=== PATIENT | male | born 1950 | race Hispanic/Latino ===

== ENCOUNTER 2022-12-03 17:57 | Inpatient (IN) | payer OTHER ==
--- OUTSIDE RECORDS SUMMARY | 2022-12-03 18:02 | XMS REPORT | Continuity of Care Document ---
:1950 Author Organization [facility] t Address [address] [place] [address] [place] [id number] Care Team Providers Name Role Phone NATY JESSICA Mccord Primary Care Physician Unavailable Balbina Woody PA-C Attending Clinician DOROTHY CLINTON Attending Clinician Unavailable Dorothy Clinton DO Attending Clinician Katrina Martinez RN Attending Clinician Unavailable BALBINA WOODY Attending Clinician Unavailable Unknown, Attending Attending Clinician Unavailable Doctor Unassigned, [place] Attending Clinician Unavailable RADIOLOGY Attending Clinician Unavailable Radiology Attending Clinician Unavailable STEPHEN AGUIAR Attending Clinician Unavailable Vaccine, Ang Db Cbc Fam Attending Clinician Unavailable Stephen Aguiar MD Attending Clinician ROMERO ARAUZ Attending Clinician Unavailable Only, Ang Db Test Attending Clinician Unavailable Coco Doll Attending Clinician COCO LUNA Attending Clinician Unavailable ABRAM RICHMOND Attending Clinician Unavailable Nurse, Adc Pob Immunization Attending Clinician Unavailable Abram Richmond DO Attending Clinician Bryan Arriola Attending Clinician BRYAN GIRALDO Attending Clinician Unavailable KAY LIVE Attending Clinician Unavailable SAVANNAH RUFFIN Admitting Clinician Unavailable Payers Payer Name Policy Type Policy Number Effective Date Expiration Date Julian LIGHT [id number] 2017 NORM 00:00:00 [facility] [id number] 2015 00:00:00 Problems Condition Condition Condition Status Onset Resolution Last Treating Co mments Source Name Details Category Date Date Treatment Clinician Date Chest pain Chest pain Disease Active U nivers 3- ity of 00:00: [place] [facility] [place] Allergies, Adverse Reactions, Alerts Allergy Allergy Status Severity Reaction(s) Onset Inactive Treating Comm ents Source Name Type Date Date Clinician PENICILL Drug Active Other-Cmnt Univ ers INS Class 3- ity of 00:00: [place] [facility] ACETAMIN DRUG Active Low Other-Cmnt Univ ers OPHEN INGREDI 3 ity of 00:00: [place] [facility] Penicill Propensi Active Other - See childhoo d Univers ins ty to comments 3 ity of adverse 00:00: [place] reaction 00 Medical s Branch Penicill Propensi Active Other - See childhoo d Univers ins ty to comments 327 ity of adverse 00:00: [place] reaction 00 Medical s Branch Penicill Propensi Active Other - See childhoo d Univers ins ty to comments 3-27 ity of adverse 00:00: [place] reaction 00 Medical s Branch Acetamin Drug Active Other - See GERD Uni vers ophen Intolera comments 3 ity of nce 00:00: [facility] Social History Social Habit Start Date Stop Date Quantity Comments Source History of Current smoker [place] of tobacco use [facility] Exposure to 2022-11-21 2022-12-01 Not sure [facility] SARS-CoV-2 00:00:00 19:23:00 [facility] (event) [place] Tobacco use and 2020-11-27 2020-11-27 Smokeless tobacco Un iversity of exposure 00:00:00 00:00:00 non-user [facility] Sex Ass[birth year] At [birth year] Universit y of 00:00:00 00:00:00 [facility] Smoking Status Start Date Stop Date Source Ex-smoker 2020-11-27 00:00:00 2020-11-27 00:00:00 Universi ty of [facility] Medications Ordered Filled Start Stop Current Ordering Indication Dosage Frequency Signature Comments Components Source Medication Medication Date Date Medication? Clinician (SIG) Name Name ibuprofen 2023-0 2023- No 800mg 800 mg, Uni vers (IBU) 12-02 Oral, ity of tablet 800 04:15: 04:08 ONCE, 1 [place] as mg 00 :00 dose, On [facility] 12/01/22 at 2315, VALENTINO cefTRIAXone 2022- No 1000mg 1,000 mg, Univers (ROCEPHIN) 12-02 IV ity of 1,000 mg in 04:15: 04:38 Piggyback, [place] NaCl 0.9% 00 :00 ONCE, 1 Medical (NS) 100 mL dose, On Bran ch MINI-BAG [facility] 12/01/22 at 2315, Administer over 30 Minutes, 100 mL
Reas on for Anti-Infec tive: Empiric Therapy for Suspected Infection< br>Empiric Therapy Site: Urine
D uration of therapy: 72 hours iopamidol 2022- No [id number] 100mL 100 mL, Univers (ISOVUE 12-02 Intravenou ity o f 370-500 mL) 03:15: 03:15 s, ONCE, 1 [place] injection 00 :00 dose, On Medica l 100 mL [facility] Branch 12/01/22 at 2215, Routine ibuprofen 2022- No 600mg 600 mg, Uni vers (IBU) 12-02 Oral, ity of tablet 600 02:45: 02:58 ONCE, 1 [place] as mg 00 :00 dose, On [facility] 12/01/22 at 2145, VALENTINO maalox:diph No 15mL 15 mL, Uni vers enhydrAMINE 12-02 Oral, ity of :lidocaine 01:30: 01:22 ONCE, 1 [place] as 2 % viscous 00 :00 dose, On Medi alfonso 1:1:1 [facility] (FIRST-MOUT 12/01/[address] [facility]) 2030, oral Routine suspension 15 mL Nitrofurant 2022- Yes [id number] 100mg Take 1 Univers oin&Nit. 12-0206 capsule by ity of Macrocryst 00:00: 04:59 [place] in [place] (MACROBID) 00 :00 the Medical 100 mg morning Branch capsule and 1 capsule in the evening. Do all this for 10 days. tamsulosin 2023-0 Yes [id number] .4mg Take 1 U nivers (FLOMAX) 4-24 capsule by ity o f 0.4 mg 24 00:00: [place] capsule 00 the Medical morning. Branch omeprazole 2022-0 Yes [id number] 40mg Take 1 U nivers 40 mg 4-24 capsule by ity of capsule 00:00: mouth in [place] 00 the Medical morning. Branch tamsulosin 2022-0 Yes [id number] .4mg Take 1 U nivers (FLOMAX) 4-24 capsule by ity o f 0.4 mg 24 00:00: [place] capsule 00 the Medical morning. Branch omeprazole 2022-0 Yes [id number] 40mg Take 1 U nivers 40 mg 4-24 capsule by ity of capsule 00:00: mouth in [place] 00 the Medical morning. Branch cephALEXin 2022-0 2022- Yes [id number] 500mg Take 1 Univers 500 mg 12-01 9100 capsule by ity of capsule 00:00: 04:59 mouth 4 [place] 00 :00 (four) Medical times Branch daily for 7 days. cephALEXin 2022-0 2022- No [id number] 500mg Take 1 Univers 500 mg -12-02 9100 capsule by ity of capsule 00:00: 00:00 mouth 4 [place] 00 :00 (four) Medical times [place] daily for 7 days. ibuprofen 2022-0 2022- No [id number] 400mg U nivers (IBU) 11-29 ity of tablet 400 21:45: 20:58 [place] mg 00 :00 Medical Branch ibuprofen 2022-0 2022- No [id number] 400mg 400 mg, Univers (IBU) 11-29 Oral, ity of tablet 400 21:45: 20:58 ONCE, 1 [place] as mg 00 :00 dose, On Medical Sat Branch 11/29/22 at 1645, Routine sulfamethox 2022-0 Yes [id number] 1{tbl} Take 1 Univers azole-trime -22 tablet by ity of thoprim 00:00: mouth in [place] (BACTRIM 00 the Medical DS) 800-160 morning Branc h mg per and 1 tablet tablet in the evening. tamsulosin 2022-0 Yes [id number] .4mg Take 1 U nivers (FLOMAX) 4-22 capsule by ity o f 0.4 mg 24 00:00: [place] capsule 00 the Medical morning. Branch sulfamethox 2022-0 Yes [id number] 1{tbl} Take 1 Univers azole-trime 4-22 tablet by ity of thoprim 00:00: mouth in [place] (BACTRIM 00 the Medical DS) 800-160 morning Branc h mg per and 1 tablet tablet in the evening. tamsulosin 2022-0 Yes [id number] .4mg Take 1 U nivers (FLOMAX) 4-22 capsule by ity o f 0.4 mg 24 00:00: [place] capsule 00 the Medical morning. Branch sulfamethox 2022-0 Yes [id number] 1{tbl} Take 1 Univers azole-trime 4-22 tablet by ity of thoprim 00:00: mouth in [place] (BACTRIM 00 the Medical DS) 800-160 morning Branc h mg per and 1 tablet tablet in the evening. sulfamethox 2022-0 2023- No [id number] 1{tbl} Take 1 Univers azole-trime 4-22 04-25 tablet by it y of thoprim 00:00: 00:00 mouth in [place] (BACTRIM 00 :00 the Medical DS) 800-160 morning Branc h mg per and 1 tablet tablet in the evening. tamsulosin 2022-0 3- No [id number] .4mg Take 1 Univers (FLOMAX) 4-22 04-24 capsule by ity of 0.4 mg 24 00:00: 00:00 mouth in [place] as hr capsule 00 :00 the Medical morning. Branch omeprazole 2020-0 Yes Univers 40 mg 1-22 ity of capsule 00:00: [place] 00 [facility] Branch omeprazole 2020-0 Yes Univers 40 mg 1-22 ity of capsule 00:00: [place] [facility] omeprazole 2020-0 Yes Univers 40 mg 1-22 ity of capsule 00:00: [place] [facility] omeprazole 2020-0 Yes Univers 40 mg 1-22 ity of capsule 00:00: [place] [facility] omeprazole 2020-0 Yes Univers 40 mg 1-22 ity of capsule 00:00: [place] [facility] omeprazole 2021-0 Yes Univers 40 mg 1-22 ity of capsule 00:00: [place] 00 Medical Branch omeprazole 2020-0 Yes Univers 40 mg 1-22 ity of capsule 00:00: [place] 00 Medical Branch omeprazole 2020-0 2022- No Univer s 40 mg 1-22 04-24 ity of capsule 00:00: 00:00 [place] 00 :00 Medical Branch Immunizations Ordered Filled Immunization Date Status Comments [facility] e Immunization Name Name SARS-COV-2 COVID-19 2022-05-19 Completed Unive rsity of VACCINE 18 YRS+, 00:00:00 [place] [facility]ical BIVALENT 0.5ML, IM, Branc h (MODERNA BOOSTER) SARS-COV-2 COVID-19 2022-05-19 Completed Unive rsity of VACCINE 12 YRS+, 00:00:00 [place] [facility] BIVALENT 0.5ML, IM, Branc h (MODERNA BOOSTER) SARS-COV-2 COVID-19 2022-05-19 Completed Unive rsity of VACCINE 12 YRS+, 00:00:00 [place] [facility] BIVALENT 0.5ML, IM, Branc h (MODERNA BOOSTER) SARS-COV-2 COVID-19 2022-05-19 Completed Unive rsity of VACCINE 12 YRS+, 00:00:00 [place] [facility] BIVALENT 0.5ML, IM, Branc h (MODERNA BOOSTER) SARS-COV-2 COVID-19 2022-05-19 Completed Unive rsity of VACCINE 12 YRS+, 00:00:00 [place] [facility] BIVALENT 0.5ML, IM, Branc h (MODERNA) SARS-COV-2 COVID-19 2022-05-19 Completed Unive rsity of VACCINE 12 YRS+, 00:00:00 [place] [facility]ical BIVALENT 0.5ML, IM, Branc h (MODERNA) SARS-COV-2 COVID-19 2022-05-19 Completed Unive rsity of VACCINE 12 YRS+, 00:00:00 [place] [facility]ical BIVALENT 0.5ML, IM, Branc h (MODERNA) SARS-COV-2 COVID-19 2021-07-11 Completed Unive rsity of MODERNA BOOSTER 00:00:00 [facility] VACCINE Branch SARS-COV-2 COVID-19 2021-07-11 Completed Unive rsity of MODERNA BOOSTER 00:00:00 [place] [facility] ical VACCINE Branch SARS-COV-2 COVID-19 2021-07-11 Completed Unive rsity of MODERNA 0.25ML 00:00:00 [place] Medi alfonso BOOSTER VACCINE Branch SARS-COV-2 COVID-19 2021-07-11 Completed Unive rsity of MODERNA 0.25ML 00:00:00 [place] Medi alfonso BOOSTER VACCINE Branch SARS-COV-2 COVID-19 2021-07-11 Completed Unive rsity of MODERNA 0.25ML 00:00:00 [place] Medi alfonso BOOSTER VACCINE Branch SARS-COV-2 COVID-19 2021-07-11 Completed Unive rsity of MODERNA 0.25ML 00:00:00 [place] Medi alfonso BOOSTER VACCINE Branch SARS-COV-2 COVID-19 2021-07-11 Completed Unive rsity of MODERNA 0.25ML 00:00:00 [place] Medi alfonso BOOSTER VACCINE Branch SARS-COV-2 COVID-19 2021-07-11 Completed Unive rsity of MODERNA 0.25ML 00:00:00 [place] Medi alfonso BOOSTER VACCINE Branch SARS-COV-2 COVID-19 2021-07-11 Completed Unive rsity of MODERNA 0.25ML 00:00:00 [place] Medi alfonso BOOSTER VACCINE Branch SARS-COV-2 COVID-19 2020-09-10 Completed Unive rsity of MODERNA VACCINE 00:00:00 [place] [facility] ical Branch SARS-COV-2 COVID-19 2020-09-10 Completed Unive rsity of MODERNA VACCINE 00:00:00 [place] [facility] ical Branch SARS-COV-2 COVID-19 2020-09-10 Completed Unive rsity of MODERNA 12+ YRS 00:00:00 [place] [facility] ical VACCINE Branch SARS-COV-2 COVID-19 2020-09-10 Completed Unive rsity of MODERNA 12+ YRS 00:00:00 [place] [facility] ical VACCINE Branch SARS-COV-2 COVID-19 2020-09-10 Completed Unive rsity of MODERNA 12+ YRS 00:00:00 [place] [facility] ical VACCINE Branch SARS-COV-2 COVID-19 2020-09-10 Completed Unive rsity of MODERNA 12+ YRS 00:00:00 [place] [facility] ical VACCINE Branch SARS-COV-2 COVID-19 2020-09-10 Completed Unive rsity of MODERNA 12+ YRS 00:00:00 [place] [facility] ical VACCINE Branch SARS-COV-2 COVID-19 2020-09-10 Completed Unive rsity of MODERNA 12+ YRS 00:00:00 [place] [facility] ical VACCINE Branch SARS-COV-2 COVID-19 2020-09-10 Completed Unive rsity of MODERNA 12+ YRS 00:00:00 [place] [facility] ical VACCINE Branch SARS-COV-2 COVID-19 2020-08-13 Completed Unive rsity of MODERNA VACCINE 00:00:00 [place] [facility] ical Branch SARS-COV-2 COVID-19 2020-08-13 Completed Unive rsity of MODERNA VACCINE 00:00:00 [place] [facility] ical Branch SARS-COV-2 COVID-19 2020-08-13 Completed Unive rsity of MODERNA 12+ YRS 00:00:00 [place] [facility] ical VACCINE Branch SARS-COV-2 COVID-19 2020-08-13 Completed Unive rsity of MODERNA 12+ YRS 00:00:00 [place] [facility] ical VACCINE Branch SARS-COV-2 COVID-19 2020-08-13 Completed Unive rsity of MODERNA 12+ YRS 00:00:00 [place] [facility] ical VACCINE Branch SARS-COV-2 COVID-19 2020-08-13 Completed Unive rsity of MODERNA 12+ YRS 00:00:00 [place] [facility] ical VACCINE Branch SARS-COV-2 COVID-19 2020-08-13 Completed Unive rsity of MODERNA 12+ YRS 00:00:00 [place] [facility] ical VACCINE Branch SARS-COV-2 COVID-19 2020-08-13 Completed Unive rsity of MODERNA 12+ YRS 00:00:00 [place] [facility] ical VACCINE Branch SARS-COV-2 COVID-19 2020-08-13 Completed Unive rsity of MODERNA 12+ YRS 00:00:00 [place] [facility] VACCINE Branch Vital Signs Vital Name Observation Time Observation Value Comments Source Heart rate 2022-12-02 04:42:00 74 /min [facility] Body temperature 2022-12-02 04:42:00 37.94 [facility] in 2022-12-02 04:42:00 95 /min University of Arterial blood by [facility] Pulse oximetry Branch Systolic blood 2022-12-02 03:00:00 142 mm[Hg] Univer sity of pressure [facility] Diastolic blood 2022-12-02 03:00:00 79 mm[Hg] Unive rsity of pressure [facility] Respiratory rate 2022-12-02 03:00:00 20 /min Univ ersity of [facility] Body height 2022-12-02 00:29:00 170.2 cm Universi ty of [facility] Body weight 2022-12-02 00:29:00 88.451 kg Universi ty of [facility] BMI 2022-12-02 00:29:00 30.54 kg/m2 Universi ty of [facility] Systolic blood 2022-11-29 20:41:00 136 mm[Hg] Univer sity of pressure [facility] Diastolic blood 2022-11-29 20:41:00 77 mm[Hg] Unive rsity of pressure [facility] Heart rate 2022-11-29 20:41:00 102 /min Universi ty of [facility] Body temperature 2022-11-29 20:41:00 37.67 Hellen Univ ersity of [facility] Respiratory rate 2022-11-29 20:41:00 19 /min Univ ersity of [facility] Body height 2022-11-29 20:41:00 170.2 cm Universi ty of [place] [facility] [place] Body weight 2022-11-29 20:41:00 90.583 kg Universi ty of [place] [facility] [place] BMI 2022-11-29 20:41:00 31.28 kg/m2 Universi ty of [facility] Oxygen saturation in 2022-11-29 20:41:00 96 /min [facility] Arterial blood by [facility] Pulse oximetry Branch Procedures Procedure Date / Time Performed Performing Clinician Sour e URINALYSIS 2022-12-02 02:21:00 Dorothy Clinton [facility] LIPASE 2022-12-02 00:50:00 Dorothy Clinton [facility] TROPONIN I 2022-12-02 00:50:00 Dorothy Clinton [facility] COMP. METABOLIC PANEL 2022-12-02 00:50:00 Dorothy Clinton [facility] ([id number]) Medical Branch CBC WITH DIFF 2022-12-02 00:50:00 Dorothy Clinton [facility] NOTICE OF PRIVACY 2022-12-02 00:11:00 Doctor Unassigned, No [facility] CONSENT/REFUSAL FOR 2022-12-02 00:10:37 Doctor Unassigned, No Un iversity of [place] DIAGNOSIS AND [facility] TREATMENT POCT URINALYSIS 2022-11-29 20:39:00 Bong [facility] o claudio [facility] ASSIGNMENT OF BENEFITS 2022-11-29 20:31:39 Doctor Unassigned, No [facility] CT SINUS WO CONTRAST 2022-11-05 13:30:13 Requisition, Paper [facility] CONSENT/REFUSAL FOR 2022-11-05 13:11:40 Doctor Unassigned, No Un iversity of [place] DIAGNOSIS AND [facility] TREATMENT ASSIGNMENT OF BENEFITS 2022-11-05 13:11:17 Doctor Unassigned, No [facility] SARS-COV-2 COVID-19 2022-05-19 18:08:36 [facility] Un[facility]igned, [facility] 18 Y[facility]+, [facility] BIVALENT 0.5ML, IM (MODERNA BOOSTER) CT SINUS WO CONTRAST 2021-11-26 14:57:46 Requisition, Paper [facility] NOTICE OF PRIVACY 2021-11-26 14:33:09 Doctor Unassigned, No [facility] CONSENT/REFUSAL FOR 2021-11-26 14:32:56 Doctor Unassigned, No Un iversity of [place] DIAGNOSIS AND [facility] TREATMENT ASSIGNMENT OF BENEFITS 2021-11-26 14:32:41 Doctor Unassigned, No [facility] Encounters Start End Encounter Admission Attending Care Care Encounter Source Date/Time Date/Time Type Type Clinicians Facility Department ID 2022-12-02 2022-12-02 Case Bong [facility] [id number] Univers 00:00:00 00:00:00 Management [facility] [id number] ity of [place] [id number] Aryan as ABISAI?BLEA [id number] [address] MEDICAL OFFICE [facility] 2022-12-01 2022-12-01 [facility] [id number] Univers 19:39:00 23:42:00 DOROTHY ity [facility] 2022-12-01 2022-12-01 Emergency [facility] [id number] Univers 19:39:00 23:42:00 Dorothy [place] [id number] i ty [id number] [place] [id number] [facility] 084 [place] 2022-12-01 2022-12-01 Nurse Katrina Martinez [id number] Univers 00:00:00 00:00:00 Triage ANOOP [id number] it y of HOSPITAL [id number] Aryan as [id number] [facility] 019 [place] 2022-11-29 2022-11-29 [facility] [id number] Univers 15:40:00 16:15:33 BALBINA [facility] 2022-11-29 2022-11-29 Urgent Bong [facility] [id number] Univers 15:40:00 16:00:00 Care Unknown, Attending HEALTH [id number] ity of [place] 4.2.7.2.686 [place] as ABISAI?BLEA [id number] [address] MEDICAL OFFICE [facility] 2022-11-29 2022-11-29 Orders Doctor GIL [id number] Univers 00:00:00 00:00:00 Only Unassigned, ANOOP [id number] ity of [place] [facility] [id number] Aryan as [id number] [facility] 009 [place] 2022-11-05 2022-11-05 Outpatient R RADIOLOGY [facility] [id number] Univers 08:11:08 23:59:00 ity of [facility] 2022-11-05 2022-11-05 Hospital Radiology [facility] 1.2.840.114 [id number] Univers 08:11:08 23:59:00 [facility] [id number] ity [facility] 4.2.7.2.686 [facility] [id number] [address] 2022-05-19 2022-05-19 Outpatient R STEFANIA [facility] [id number] Univers 13:00:00 13:40:03 STEPHEN [facility] 2022-05-19 2022-05-19 Imm/Inj Vaccine, Ang Db Cbc Fam [facility] 1. 2.840.114 [id number] Univers 13:00:00 13:10:00 Visit Stephen Aguiar [facility] [id number] ity [facility] 4.2.7.2.686 Aryan as ABISAI?BLEA [id number] Ga dical [facility] 044 [place] MEDICAL OFFICE [facility] 2021-11-26 2021-11-26 Outpatient R RADIOLOGY [facility] [id number] Univers 09:36:12 23:59:00 [facility] 2021-11-26 2021-11-26 Hospital Radiology [facility] 1.2.840.114 [id number] Univers 09:36:12 23:59:00 [facility] [id number] ity [facility] 4.2.7.2.686 [facility] [id number] [address] 2021-09-30 2021-09-30 Outpatient R REGLA [facility] [id number] Univers 18:00:00 18:00:00 ROMERO ittaz [facility] 2021-08-10 2021-08-10 Laboratory Only, Ang Db Test [facility] 1.2.8 40.114 [id number] Univers 12:00:00 12:15:00 Only Coco Luna [employer] 350.1.13.10 ity of [place] 4.2.7.2.686 Aryan as ABISAI?BLEA [id number] Ga dical K[place] 370 [place] MEDICAL OFFICE BUILDING 2021-08-10 2021-08-10 Outpatient R CHERYL [facility] [id number] Univers 12:00:00 12:00:00 COCO ity [facility] 2021-08-10 2021-08-10 Outpatient R CHERYL [facility] [id number] Univers 12:00:00 12:00:00 COCO matt [facility] 2021-08-10 2021-08-10 Letter Doctor GIL 1.2.840.114 [id number] Univers 00:00:00 00:00:00 (Out) Unassigned, ANOOP 350.1.13.10 ity of [place] [facility] 4.2.7.2.686 Aryan as [id number] [address] 2021-08-10 2021-08-10 Letter Doctor LOUISE 1.2.840.114 [id number] Univers 00:00:00 00:00:00 (Out) Unassigned, ANOOP [id number] ity of [place] [facility]OS[facility] 4.2.7.2.686 Aryan as [id number] [address] 2021-08-10 2021-08-10 Letter Doctor GIL 1.2.840.114 [id number] Univers 00:00:00 00:00:00 (Out) Unassigned, ANOOP [id number] ity of [place] [facility] 4.2.7.2.686 Aryan as [id number] [address] 2021-07-11 2021-07-11 Outpatient R YI [facility] [id number] Univers 09:50:00 09:50:00 ABRAM matt [facility] 2021-07-11 2021-07-11 Imm/Inj Nurse, Adc Pob Immunization [facility] 1.2.840.114 [id number] Univers 09:16:21 09:46:26 Visit Abram [place] 350.1.13 .10 [place]y [place]2.[place] [id number] Ga dic[address] 2021-01-11 2021-01-11 Orders Doctor GIL 1.2.840.114 [id number] Univers 00:00:00 00:00:00 Only Unassigned, ANOOP 350.1.13.10 ity of [place] [facility] 4.2.7.2.686 Aryan as [id number] [address] 2020-12-10 2020-12-10 Orders Doctor LOUISE 1.2.840.114 [id number] Univers 00:00:00 00:00:00 Only Unassigned, ANOOP 350.1.13.10 ity of [place] [facility] 4.2.7.2.686 Aryan as [id number] [address] 2020-11-27 2020-11-27 Hospital [facility] 1.2.840.114 [id number] Univers 09:12:27 23:59:00 Encounter [facility] [id number] ity of Surgical 4.2.7.2.686 Aryan as Specialti [id number] Ga dical es 809 [facility] 2020-11-27 2020-11-27 Outpatient R [facility] [id number] Univers 09:12:27 23:59:00 [facility] 2020-11-27 2020-11-27 Office [facility] 1.2.840.114 [id number] Univers 09:02:28 09:17:28 Visit [facility] [id number] it y of Surgical 4.2.7.2.686 Aryan as Specialti [id number] Ga dical es 198 [facility] 2020-09-10 2020-09-10 [facility]patient [facility] [id number] Univers 13:00:00 13:00:00 [facility] [place] [facility] 2020-08-13 2020-08-13 [facility]patient [facility] [id number] Univers 15:20:00 15:20:00 [facility] Results Test Description Test Time Test Comments Results Result Comments Source TROPONIN I 2022-12-02 01:44:20 Test Item Value Reference Range Interpretation Comme nts TROPONIN I (test code = 2706035815) 0.005 ng/mL <=0.034 BLAIR (test code = BLAIR) Reference (Normal) Range (defined by the 99th percentile reference limit): <= 0.034 ng/mL Note: Cardiac troponin begins to rise 3-4 hours after the onset of ischemia. Repeat in 4-6 hours if the sample was drawn within 3-4 hours of the onset of the symptom and found normal. Diagnosis of myocardial injury is made with acute changes in cTn concentrations with at least one serial sample above the 99th percentile upper reference limit (URL), taken together with the patient's clinical presentation. Biotin has been reported to cause a negative bias, interpret results relative to patient's use of biotin. Lab Interpretation (test code = Normal 67729-7) [facility] WITH [id number] 01:34:13 Test Item Value Reference Range Interpretation Comments WBC (test code = 8.11 See_Comment [Automated 1629-2) message] The sy stem which generated this result transmitted reference range : 4.20 - 10.70 10*3/?L. The reference range was not used to interpret this result as normal/abnormal . RBC (test code = 4.87 See_Comment [Automated 129-8) message] The sy stem which generated this result transmitted reference range : 4.26 - 5.52 10*6/?L. The reference range was not used to interpret this result as normal/abnormal . HGB (test code = 15.3 g/dL 12.2-16.4 718-7) HCT (test code = 45.0 % 38.4-49.3 4544-3) MCV (test code = 92.4 fL 81.7-95.6 787-2) MCH (test code = 31.4 pg 26.1-32.7 785-6) MCHC (test code = 34.0 g/dL 31.2-35.0 786-4) RDW-SD (test code = 41.2 fL 38.5-51.6 12005-0) RDW-CV (test code = 12.2 % 12.1-15.4 788-0) PLT (test code = 205 See_Comment [Automated 357-3) message] The sy stem which generated this result transmitted reference range : 150 - 328 10*3/ ?L. The reference r reji was not used to interpret this result as normal/abnormal . MPV (test code = 10.5 fL 9.8-13.0 76285-2) NRBC/100 WBC (test 0.0 See_Comment [Automat ed code = 7048164913) message] The system which generated this result transmitted reference range : 0.0 - 10.0 /100 WBCs. The refer ence range was not u sed to interpret th is result as normal/abnormal . NRBC x10^3 (test code See_Comment [Auto mated = 4386238841) message] The s ystem which generated this result transmitted reference range : 10*3/?L. The reference range was not used to interpret this result as normal/abnormal . GRAN MAT (NEUT) % 82.4 % (test code = 770-8) IMM GRAN % (test code 0.90 % = 0006469782) LYMPH % (test code = 6.2 % 736-9) MONO % (test code = 10.2 % 5905-5) EOS % (test code = 0.1 % 713-8) BASO % (test code = 0.2 % 706-2) GRAN MAT x10^3(ANC) 6.68 10*3/uL 1.99-6.95 (test code = 7703477413) IMM GRAN x10^3 (test 0.07 10*3/uL 0.00-0.06 H code = 9978582203) LYMPH x10^3 (test code 0.50 10*3/uL 1.09-3.23 L = 731-0) MONO x10^3 (test code 0.83 10*3/uL 0.36-1.02 = 742-7) EOS x10^3 (test code = 0.06-0.53 L 711-2) BASO x10^3 (test code 0.01-0.09 = 704-7) Lab Interpretation Abnormal (test code = 19854-9) [facility] ([id number])2022-12-02 01:21:35 Test Item Value Reference Range Interpretation Comments NA (test code = 132 mmol/L 135-145 L 1931193844) K (test code = 4.0 mmol/L 3.5-5.0 2840868950) CL (test code = 99 mmol/L 98-108 9527893249) CO2 TOTAL (test code = 25 mmol/L 23-31 3316251499) AGAP (test code = 8 2-16 5540566432) BUN (test code = 16 mg/dL 7-23 8417504765) GLUCOSE (test code = 136 mg/dL 70-110 H 9906421947) CREATININE (test code = 0.81 mg/dL 0.60-1.25 8545899907) TOTAL BILI (test code = 1.0 mg/dL 0.1-1.2 2115437072) CALCIUM (test code = 8.4 mg/dL 8.6-10.6 L 2078714461) T PROTEIN (test code = 6.9 g/dL 6.3-8.2 5709938565) ALBUMIN (test code = 3.9 g/dL 3.5-5.0 0041025808) ALK PHOS (test code = 112 U/L 34-122 8983176025) ALTv (test code = 32 U/L 5-50 2-6) AST(SGOT) (test code = 39 U/L 13-40 4077771264) eGFR (test code = 93.9 mL/min/1.73m2 3139088614) BLAIR (test code = LBAIR) Association of Glomerular Filtration Rate (GFR) and Staging of Kidney Disease* + --+ --+ ------+| GFR (mL/min/1.73 m2) ?| With Kidney Damage ?| ?Without Kidney Damage+ --------+ --------+ +| ?>90 ?| ?Stage one ?| ? Normal ?+ ---+ ---+ -------+| ?60-89 ?| ?Stage two ?| ? Decreased GFR ? + --+ --+ ------+| ?30-59 ?| ?Stage three ?| ? Stage three ? + --+ --+ ------+| ?15-29 ?| ?Stage four ? | ? Stage four ?+ ---+ ---+ -------+| ?<15 (or dialysis) ? ?| ?Stage five ? | ? Stage five ?+ ---+ ---+ -------+ *Each stage assumes the associated GFR level has been in effect for at least three months. ?Stages 1 to 5, with or without kidney disease, indicate chronic kidney disease. Notes: Determination of stages one and two (with eGFR >59mL/min/1.73 m2) requires estimation of kidney damage for at least three months as defined by structural or functional abnormalities of the kidney, manifested by either:Pathological abnormalities or Markers of kidney damage (including abnormalities in the composition of the blood or urine or abnormalities in imaging tests). Lab Interpretation Abnormal (test code = 80470-9) [facility]15 Test Item Value Reference Range Interpretation Comments LIPASE (test code = 6304657424) 52 U/L 0-220 Lab Interpretation (test code = Normal 80621-7) [facility] SPECIFIC [id number] 20:40:00 Test Item Value Reference Range Interpretation Comments POCT U SP GRAV (test 1.020 mg/dl 1.005-1.025 code = 3255) POCT PH U (test code = 5 mg/dl 5-8 3254) POCT U LEUK EST (test ++ Negative - code = 3263) Negative POCT U NIT (test code positive Negative - = 3262) Negative POCT U PROT (test code ++100 Negative - = 3259) Negative POCT U GLU (test code normal Negative - = 3256) Negative POCT U KETONE (test +++large Negative - code = 3258) Negative POCT U UROBILI (test 12mg/dl 0.2-1 code = 3260) POCT U BILI (test code negative Negative - = 3261) Negative POCT U BLD (test code about 250 Negative - = 3257) Negative POCT U COLOR (test elsy code = 3266) POCT U APPEAR (test cloudy code = 3267) BLAIR (test code = BLAIR) accurate development and interpretation of all internal controls Lab Interpretation Abnormal (test code = 90669-6) [facility]"
[2022-12-03 19:52] VITALS: BMI 30.7
[2022-12-03 20:15] VITALS: O2SAT 97
[2022-12-03 20:47] LABS: Absolute Lymphocytes (CBC) 1.3 K/uL (0.7-4.9); Hematocrit 42.4 % (39.6-49.0); MPV 8.5 fL (7.6-11.3); RBC Red Blood Cell Count 4.61 M/uL (4.33-5.43)
[2022-12-03 21:13] LABS: Urine Bilirubin NEGATIVE (Negative); Urine Blood Negative (Negative); Urine Clarity Clear (Clear); Urine Color Light-Yellow (Yellow); Urine Glucose NEGATIVE (Negative); Urine Protein NEGATIVE (Negative); Urine Urobilinogen Normal (Normal); Urine pH 6.5 (5.0-7.0)
[2022-12-03 21:28] LABS: Albumin 3.1 g/dL (3.4-5.0); Bilirubin Total 0.3 mg/dL (0.2-1.0); Potassium 3.3 mEq/L (3.5-5.1); Protein, Total 7.1 g/dL (6.4-8.2)
[2022-12-03] MEDS: Meropenem 1,000 MG in NA CHLORIDE 0.9% 100 ML IV SCH (22:18)
[2022-12-03] MEDS ORDERED: NA CHLORIDE 0.9% 100 ML ONE (22:19)
[2022-12-03] MEDS ORDERED: Meropenem 1000 MG/VIAL IV ONE (22:21)
[2022-12-04] MEDS ORDERED: PNEUMOCOCCAL VACCINE 0.5 ML IMVAC ONE (08:00)
[2022-12-04] MEDS: Meropenem 1,000 MG in NA CHLORIDE 0.9% 100 ML IV SCH ×2 (08:21→20:04)
[2022-12-04] MEDS: TAMSULOSIN 0.4 MG SR CAP PO SCH (08:21)
--- NOTE | 2022-12-04 08:57 | RAD REPORT ---
EXAM DESCRIPTION: CTAbdomen Pelvis W Contrast - 12/04/2022 7:39 am CLINICAL HISTORY: Abdominal pain. UTI COMPARISON: Abdomen Pelvis Wo Contrast dated 09/10/2022 TECHNIQUE: Biphasic CT imaging of the abdomen and pelvis was performed with 100 ml non-ionic IV cont rast. All CT scans are performed using dose optimization technique as appropriate and may include automated exposure control or mA/KV adjustment according to patient size. FINDINGS: The lung bases are clear. The liver, spleen, pancreas, adrenal glands and kidneys are within normal limits. No bowel obstruction, free air, free fluid or abscess. Significant fecal retention throughout the col on. The appendix is normal. No evidence of significant lymphadenopathy. No suspicious bony findings. IMPRESSION: No acute intra-abdominal or pelvic finding.
--- NOTE | 2022-12-04 09:05 | RAD REPORT ---
EXAM DESCRIPTION: RAD - Chest Pa And Lat (2 Views) - 12/04/2022 8:59 am CLINICAL HISTORY: UTI Chest pain. COMPARISON: Chest Pa And Lat (2 Views) dated 09/10/2016 FINDINGS: The lungs are clear. The heart is normal in size. No displaced fractures. IMPRESSION: No acute or concerning finding suspected.
--- NOTE | 2022-12-04 23:49 | PN ---
Date of Progress Note: 12/04/2022 Subjective: The patient was seen this morning for followup. No new complaints or problems reported by the patient. Lying in bed, not in any distress. Objective: Vital Signs: Reviewed. HEENT: Unremarkable. Lungs: Clear to auscultation. Heart: Sounds normal. Abdomen: Soft. Bowel sounds normal. No guarding, rigidity, or distention. Presence of tenderness in suprapubic region, unchanged from yesterday. No rebound tenderness. Extremities: No leg edema. Laboratory Data: Yesterday's CBC and chemistry results reviewed. Today CT scan of the abdomen and p antonio was ordered with contrast and it came back unremarkable. Impression: 1.Urinary tract infection. 2.Gastroesophageal reflux disease. Plan: We will go ahead and continue current antibiotic, which is meropenem. Urinalysis was normal, which was done upon admission and urine culture result is pending. We will follow up on urine cultur e result and once that is available then we will plan for discharge. Meanwhile continue current eleazar penem. KAREN/MODL Voice ID: [id number] Report ID: [id number]
[2022-12-05] MEDS: PANTOPRAZOLE 40MG TABLET PO SCH (05:50)
[2022-12-05] MEDS: Mupirocin NASAL 2 APPL/1 GM TUBE NAS SCH ×2 (09:26→20:01)
[2022-12-05] MEDS: Meropenem 1,000 MG in NA CHLORIDE 0.9% 100 ML IV SCH ×2 (09:26→20:01)
[2022-12-05] MEDS: TAMSULOSIN 0.4 MG SR CAP PO SCH (09:26)
--- NOTE | 2022-12-05 13:30 | RAD REPORT ---
EXAM DESCRIPTION: RAD - Chest Single View - 12/05/2022 12:38 pm CLINICAL HISTORY: Device placement PICC line placement . IMPRESSION: PICC line with its tip in the proximal superior vena cava
--- NOTE | 2022-12-05 16:07 | HP ---
Date of Admission: 12/03/2022 Chief Complaint: Urinary tract infection. History Of Present Illness: This is a 72-year-old very pleasant male patient who came into office wi th symptoms of urinary tract infection about 2 weeks ago. At that time, urinalysis was done at [facility], which was indicating presence of urinary tract infection and patient was started on Cipro and urin e culture was sent. Urine culture did not grow any particular bacteria, but the patient's symptoms i mproved after taking 1 week of Cipro. Few days after he finished taking Cipro, he started to have pr oblem with burning sensation on urination, frequency, and fever and at that time, he decided to go to [facility] emergency room, which was on 12/01/2022. Patient had blood test, urinalysis, and urine culture done. Initially, he was prescribed Bactrim from the emergency room. After taking 1 dose of Bactrim , he started to have nausea, vomiting, so he was prescribed cephalexin by emergency room and patient reports that [facility] contacted him to stop cephalexin and to start nitrofurantoin and he did not know wh y and that is the time he came to see me at office. Patient brought copy of his CBC, chemistry panel , urinalysis, and all those results reviewed and it was unremarkable except his urinalysis was abnorm al consistent with urinary tract infection and urine culture result, he did not bring it and he was a sked to bring it as he reported that he had it at home and patient did not bring that urine culture r esults until today on 12/03/2022 and then just showed E coli, but no sensitivity result. So, we karissa hartmany got this copy of the results from [facility] and this appears to be resistant E coli, sensitiv e to meropenem, ertapenem, and only oral antibiotic it is sensitive to is nitrofurantoin. On the cul ture report, it does not state that this is ESBL, but that is what I am concerned about on basis of t his result, which is resistant E coli. The patient also had a CAT scan of abdomen and pelvis done in the emergency room, which did not show any evidence of kidney stone, but it did show significant ab dder wall thickening with stranding of the fat around the bladder and enlarged prostate. After revie wing all this information, it was recommended for patient to get admitted to the hospital with IV ant ibiotics, meropenem. It is important to note that the patient has been taking nitrofurantoin for las t 1-2 days. He did have low-grade fever yesterday. Allergies: PENICILLIN. Medications: Omeprazole 40 mg daily and nitrofurantoin 100 mg 2 times a day. Review of Systems: Constitutional: As mentioned above. Genitourinary: As mentioned above. All other systems reviewed and negative. Past Medical History: Significant for allergic rhinitis, impaired fasting glucose, hyperlipidemia, g astroesophageal reflux disease, cervical spondylosis, and lumbar spondylosis. Past Surgical History: Left shoulder surgery. Family History: Father in motor vehicular accident. Mother, brother, and sister have diabetes. Social History: Negative for smoking. Use of alcohol weekly. Physical Examination: Vital Signs: When he was admitted, temperature 97.2, pulse 71, respiratory rate 18, blood pressure 1 68/79, oxygen saturation 95%. Height 5 feet 7 inches, weight 196 pounds. General: Awake, alert, oriented, not in distress. HEENT: Head atraumatic, normocephalic. Conjunctivae nonerythematous. Sclerae white. Mouth, no thr ush or edema noted. Ears/Nose, no mass, lesion, discharge noted. Neck: Supple. No JVD, lymph nodes, bruit, thyromegaly noted. Lungs: Bilateral good equal air entry. Clear to auscultation. No rhonchi. No rales. Heart: Normal heart sounds, no murmur or gallop. Abdomen: Soft. Bowel sounds normal. No guarding, rigidity, distention. No hepatosplenomegaly. No bruit and patient does have suprapubic tenderness. Extremities: No leg edema. No calf tenderness. Skin: No rash, ulcer, cellulitis. Lymphatics: No lymph node enlargement in neck, supraclavicular, infraclavicular region. Neuro: No focal neurological deficit. Chest: Unremarkable. External Genitalia: Deferred. Rectal: Deferred. Laboratory Data: White count 5.7, hemoglobin 14.8, platelets 203. Sodium 131, potassium 3.3, chlori de 100, bicarb 28, BUN 15, creatinine 0.77, glucose 135. AST 41. Otherwise rest of the liver funct ion tests normal. Procalcitonin 0.11, which is slightly high. Lactic acid normal at 1.1. Urinalysi s done at our hospital upon admission is normal. Impression: 1.Urinary tract infection, organism Escherichia coli. 2.Benign prostatic hypertrophy. 3.Hypokalemia. 4.Hyponatremia. 5.Gastroesophageal reflux disease. 6.Allergic rhinitis. 7.Impaired fasting glucose. 8.Hyperlipidemia. 9.Cervical spondylosis. 10.Lumbar spondylosis. Plan: We will admit the patient to hospital for further evaluation and management of this problem. Patient is appropriate for inpatient and is expected to spend 2 midnights in hospital. It appears th at the patient has a urinary tract infection with resistant E coli on basis of urine culture results, his symptoms, physical findings, and CAT scan results. He has taken nitrofurantoin for 1-2 days marcella t is resulting in normal urinalysis findings that we see upon admission. We will wait for our urine culture and blood culture results. Start the patient on IV meropenem 1000 mg every 12 hours. For hy pokalemia, give potassium replacement per order. We will continue his proton pump inhibitor therapy for gastroesophageal reflux disease. DVT prophylaxis will be given per order. Details and plan of t reatment discussed with the patient. KAREN/MODL Voice ID: [id number]
--- NOTE | 2022-12-05 20:22 | PN ---
Date of Progress Note: 12/05/2022 Subjective: Patient was seen this morning for followup. He was lying in bed, not in any distress. Overall, he feels a lot better. His suprapubic pain has significantly improved. His urinary frequen cy problem with this infection has improved. It is not back to normal, but it is better than before. The burning on urination also has improved. Objective: Vital Signs: Reviewed. HEENT: Unremarkable. Lungs: Clear to auscultation. Heart: Sounds normal. Abdomen: Soft. Bowel sounds normal. No guarding, rigidity, or distention. No rebound tenderness. The patient has very minimal tenderness in the suprapubic region, which is much better today than ye sterday. Extremities: No leg edema. Laboratory Data: PSA yesterday was 19.3. Impression: 1.Prostatitis. 2.Acute cystitis. 3.Gastroesophageal reflux disease. 4.Hypokalemia. Plan: We will go ahead and continue current medication, which is meropenem and we will order PICC li ne for him. The patient had a normal PSA before and there is acute increase in PSA and this is consi stent with his acute prostatitis problem. Overall, his symptoms are better. He is feeling better. Plan is now to go ahead and place PICC line. Continue meropenem for 2 more weeks upon discharge and Social Service consultation was requested. Possible discharge to go home tomorrow and details of plan of treatment discussed with the patient. KAREN/MODL Voice ID: [id number] Report ID: [id number]
[2022-12-06] MEDS: PANTOPRAZOLE 40MG TABLET PO SCH (06:38)
[2022-12-06 07:40] LABS: Absolute Lymphocytes (CBC) 2.1 K/uL (0.7-4.9); Hematocrit 41.7 % (39.6-49.0); Lymphocytes % 26.8 % (15.3-44.8); MCV 93.6 fL (80-100); MPV 8.4 fL (7.6-11.3); RBC Red Blood Cell Count 4.46 M/uL (4.33-5.43)
[2022-12-06 07:50] LABS: Magnesium 2.4 mg/dL (1.6-2.4); Potassium 4.1 mEq/L (3.5-5.1)
[2022-12-06] MEDS: Meropenem 1,000 MG in NA CHLORIDE 0.9% 100 ML IV SCH (09:45)
[2022-12-06] MEDS: Mupirocin NASAL 2 APPL/1 GM TUBE NAS SCH (09:45)
[2022-12-06] MEDS: TAMSULOSIN 0.4 MG SR CAP PO SCH (09:46)
--- NOTE | 2022-12-06 15:22 | DS ---
Date of Discharge: 12/06/2022 The patient was seen this morning for followup. Denies any new complaints. No abdominal pain, nause a, vomiting. No dysuria. Objective: Vital Signs: Reviewed. HEENT: Unremarkable. Lungs: Clear to auscultation. Heart: Sounds normal. Abdomen: Soft. No guarding, rigidity, tenderness except very minimal suprapubic tenderness present which is significantly better than before. Bowel sounds normoactive. Extremities: No leg edema. Discharge Medications And Instructions: 1.Continue all prior home medications which is omeprazole 40 mg by mouth once a day, tamsulosin 0.4 mg by mouth once a day. 2.Do not take any antibiotic pills that was prescribed from [facility] prior to this admission. 3.Take meropenem 1000 mg IV every 12 hours for 2 weeks. 4.Home health nurse to assist patient with PICC line care which is flush PICC line per protocol, rossy nge PICC line dressing per protocol, remove PICC line after 2 weeks of IV antibiotic therapy complete d. 5.The patient to come to my office next week on Thursday or Thursday, which is December 09 or December 10, for known fasting blood work. 6.Follow up at my office on December 17, 2022. Laboratory Data: Upon admission; white count 5.7, hemoglobin 14.8, and platelet count 203. Today, w luis armando count 7.7, hemoglobin 14.1, platelets 280. Upon admission, sodium 131, potassium 3.3, chloride 100, bicarb 28, BUN 15, creatinine 0.77, glucose 135, AST 41. Procalcitonin 0.11. Lactic acid 1.1. PSA at 19.30. Today; sodium 134, potassium 4.1, chloride 105, bicarb 28, BUN 12, creatinine 0.57, g lucose 105. Hospital Course: This is a 72-year-old male patient who was admitted to the hospital with urinary tr act infection problem. Please see dictated H and P for more information. The patient was admitted t o the hospital for IV antibiotic therapy. The patient has a complicated acute cystitis with acute pr ostatitis. He had fever between 100-101 degrees Fahrenheit when he went to [facility]. After marcella t, his temperature came down. Urine culture that was done at [facility] had grown E coli, which w as a resistant bacteria and only oral antibiotic it was sensitive was another nitrofurantoin, otherwi se it was sensitive to IV meropenem and ertapenem and resistant to all other antibiotics. So, even t nate it was not listed on the urine culture results that we have obtained from [facility] that this was E coli and ESBL, but that is what I am concerned about with the sensitivity result and with his present ation giving oral antibiotic nitrofurantoin cannot be adequate treatment for him and decision was mad e to admit him to the hospital for IV meropenem, which he has tolerated very well, and in fact, his s ymptoms started to improve. He had dysuria, urinary frequency, and pain on the ventral aspect of his penile shaft, and suprapubic pain and tenderness, and all of these symptoms have disappeared complet benjamin. He has very minimal tenderness in the suprapubic region, but overall he feels significantly bet ter. He has remained afebrile. PICC line was placed and he was seen by Social Service to help make arrangements for home IV antibiotic therapy, and today, he will be discharged to go home in stable co ndition with above-mentioned medications and instructions. His PSA was elevated 19.3, which is due t o acute prostatitis and what I am planning to do is after 2 weeks of IV meropenem. I will give him a bout 1 month of oral nitrofurantoin therapy, and we will do followup PSA later on. KAREN/MODL Voice ID: [id number] Report ID: [id number]
[2022-12-06 17:27] VITALS: BP 142/72; TEMP 97
== END 2022-12-06 18:20 | disposition home or self-care (01) | DRG 690 ==
LOC: 2ND 17:57
PROVIDERS: ADMIT Internal Medicine; ATTEND Internal Medicine
PROC: 02HV33Z Insertion of Infusion Device into Superior Vena Cava, Percutaneous Approach (ICD-10-PCS; principal; 2022-12-05)
DX: N30.00 Acute cystitis without hematuria (principal); E87.1 Hypo-osmolality and hyponatremia; Z16.30 Resistance to unspecified antimicrobial drugs; N41.0 Acute prostatitis; K21.9 Gastro-esophageal reflux disease without esophagitis; J30.9 Allergic rhinitis, unspecified; E78.5 Hyperlipidemia, unspecified; N40.0 Benign prostatic hyperplasia without lower urinary tract symptoms; E87.6 Hypokalemia; M47.892 Other spondylosis, cervical region; M47.896 Other spondylosis, lumbar region; B96.20 Unspecified Escherichia coli [E. coli] as the cause of diseases classified elsewhere; R73.01 Impaired fasting glucose; Z88.0 Allergy status to penicillin; Z79.899 Other long term (current) drug therapy
CPT/HCPCS: 36415; 36569; 71045; 71046; 74177; 80048; 80053; 81003; 83605; 83735; 84145; 85025; 87040; 87086; 87088; G0103; J2185; Q9967